=== PATIENT | female | born 1985 | race Caucasian/White ===

== ENCOUNTER 2022-10-06 16:28 | Emergency (ER) | payer MEDICAID ==
[~2022-10-06] VITALS: Ht 167.6 cm; Wt 89.0 kg
[2022-10-06 17:09] VITALS: BP 139/95
== END 2022-10-06 18:41 | disposition left against medical advice (07) ==
LOC: ER 16:28
DX: Z53.21 Procedure and treatment not carried out due to patient leaving prior to being seen by health care provider (principal)